=== PATIENT | male | born 1945 | race Caucasian/White ===

== ENCOUNTER 2025-04-23 18:10 | Emergency (ER) | payer MEDICARE ==
[2025-04-23 21:01] LABS: APPEARANCE,URINE CLEAR (Clear); GLUCOSE,URINE NEGATIVE (Negative); OCCULT BLOOD,URINE NEGATIVE (Negative)
[2025-04-23 21:40] LABS: BASOPHILS ABSOLUTE AUTO 0.1 K/mm3 (0.0-0.2); BASOPHILS PERCENT AUTO 0.4 % (0.0-1.0); EOSINOPHILS ABSOLUTE AUTO 0.0 K/mm3 (0.0-0.4); EOSINOPHILS PERCENT AUTO 0.3 % (0.0-6.0); IMMATURE GRAN ABSOLUTE AUTO 0.07 K/mm3 (0.00-0.05); IMMATURE GRAN PERCENT AUTO 0.5 % (0.0-0.4); LYMPHOCYTES ABSOLUTE AUTO 1.0 K/mm3 (1.0-4.8); LYMPHOCYTES PERCENT AUTO 6.8 % (24.0-44.0); MEAN PLATELET VOLUME 8.3 fl (9.4-12.4); MONOCYTES ABSOLUTE AUTO 1.0 K/mm3 (0.0-0.8); MONOCYTES PERCENT AUTO 7.2 % (0.0-8.0); NEUTROPHILS ABSOLUTE AUTO 12.1 K/mm3 (1.8-7.7); NEUTROPHILS PERCENT AUTO 84.8 % (41.0-71.0); NRBC ABSOLUTE 0.00 (0.00-0.02); NRBC PERCENT 0.0 % (0.0-0.2); PLATELET COUNT,PLT 213 K/mm3 (150-400); RED BLOOD CELL COUNT 4.20 M/mm3 (4.52-5.90); WHITE BLOOD CELL COUNT,WBC 14.21 K/mm3 (3.9-11.3)
[2025-04-23 22:03] LABS: A/G RATIO 1.3 (1-2); ALANINE AMINOTRANSFERASE,ALT 20.0 U/L (16-63); ASPARTATE AMNIOTRANSFERASE,AST 28.0 U/L (15-37); BILIRUBIN TOTAL 0.8 mg/dL (0.2-1.0); BLOOD UREA NITROGEN,BUN 18.0 mg/dL (7-18); CARBON DIOXIDE,CO2 26.0 mEq/L (21-32); CHLORIDE,CL 92.0 mEq/L (98-107); CREATININE 0.9 mg/dL (0.7-1.3); EST CRCL DRUG DOSING (CG) 69.72 mL/min; ESTIMATED GFR 86.0 mL/min (>60); GLUCOSE RANDOM 116.0 mg/dL (70-99); POTASSIUM,K 5.1 mEq/L (3.5-5.1); PROTEIN TOTAL,TP 6.8 g/dl (6.4-8.2); SODIUM,NA 124.0 mEq/L (136-145); TROPONIN I HIGH SENSITIVITY 7.0 pg/mL (<=76)
[2025-04-23] MEDS ORDERED: Naloxone 0.4 MG/ML SDV IVPUSH PRN (22:08)
[2025-04-23] MEDS: fentaNYL 100 MCG/2 ML SDV IVPUSH ONE (22:21)
== END 2025-04-24 00:09 | disposition home or self-care (01) ==
LOC: JD.ED 18:10
DX: S22.41XA Multiple fractures of ribs, right side, initial encounter for closed fracture (principal); S00.11XA Contusion of right eyelid and periocular area, initial encounter; Z79.899 Other long term (current) drug therapy; W23.0XXA Caught, crushed, jammed, or pinched between moving objects, initial encounter
CPT/HCPCS: 36415; 51702; 71045; 71250; 73030; 73590; 73610; 80053; 81003; 83735; 83880; 84484; 85025; 93005; 96374; 99284; J3010; J7030